=== PATIENT | female | born 1990 | race Caucasian/White ===

== ENCOUNTER 2021-01-27 20:53 | Emergency (ER) | payer OTHER ==
[2021-01-27 23:00] LABS: HEMOGLOBIN 15.9 gm/dl (12.3-15.3); RED BLOOD COUNT 4.45 M/UL (4.00-5.10); WHITE BLOOD COUNT 8.1 K/UL (4.5-11.0)
[2021-01-28 00:27] LABS: BUN/CREATININE RATIO 11 (0-10)
[2021-01-28] MEDS ORDERED: ONDANSETRON ODT4 MG SL (02:54)
[2021-01-28] MEDS ORDERED: BENTYL 20MG TAB20 MG PO (02:55)
== END 2021-01-28 03:12 | disposition home or self-care (01) ==
LOC: ER1 20:53
PROVIDERS: Emergency Medicine
DX: K52.9 Noninfective gastroenteritis and colitis, unspecified (principal); E87.6 Hypokalemia; F17.290 Nicotine dependence, other tobacco product, uncomplicated
CPT/HCPCS: 80053; 81001; 83690; 84703; 85025; 87086; 99284; Q9967